=== PATIENT | female | born 1995 | race Caucasian/White ===

== ENCOUNTER 2017-02-19 23:02 | Inpatient (IN) | payer BC, MEDICARE ==
[~2017-02-19] VITALS: Ht 160 cm; Wt 50.5 kg
[2017-02-19 23:48] LABS: BASOPHILS # (AUTO) 0.02 K/uL (0.00-0.20); BASOPHILS % (AUTO) 0.2 % (0.0-2.0); EOSINOPHILS # (AUTO) 0.08 K/uL (0.00-0.70); EOSINOPHILS % (AUTO) 0.63 % (1.0-6.0); HEMATOCRIT 34.3 % (36-46); HEMOGLOBIN 11.4 g/dL (12.0-16.0); LYMPHOCYTES # (AUTO) 2.7 K/uL (1.0-4.8); LYMPHOCYTES % (AUTO) 21.6 % (22.0-44.0); MEAN CORPUSCULAR HEMOGLOBIN 28.8 pg (26.0-34.0); MEAN CORPUSCULAR HGB CONC 33.2 G/dL (31.0-37.0); MEAN CORPUSCULAR VOLUME 87 fL (80-100); MONOCYTES # (AUTO) 0.8 K/uL (0.1-1.0); NEUTROPHILS # (AUTO) 8.9 K/uL (1.8-7.7); NEUTROPHILS % (AUTO) 71.6 % (40.0-70.0); PLATELET COUNT (AUTO) 245 K/uL (150-450); RED BLOOD CELL COUNT(AUTO) 3.96 MIL/uL (4.00-5.20); RED CELL DISTRIBUTION WIDTH 14.4 % (11.5-14.5)
[2017-02-19 23:51] LABS: HCG,QUAL RESULT NEGATIVE (NEGATIVE)
[2017-02-19 23:52] LABS: APPEARANCE,URINE CLOUDY (CLEAR); GLUCOSE, URINE (UA) NEGATIVE (NEGATIVE); KETONES,URINE 40 mg/dL (NEGATIVE); LEUKOCYTE ESTERASE ,URINE SMALL (NEGATIVE); NITRATE,URINE NEGATIVE (NEGATIVE); OCCULT BLOOD,URINE SMALL (NEGATIVE); PH,URINE 5.5 (5.0-8.0); PROTEIN,URINE POS 1+ (NEGATIVE); UROBILINOGEN,URINE 0.2 mg/dL (<=1.0)
[2017-02-19 23:53] LABS: AMPHET/METH SCREEN,URINE NEGATIVE (NEGATIVE); BARBITURATE SCREEN, URINE NEGATIVE (NEGATIVE); BENZODIAZEPINES SCREEN,URINE NEGATIVE (NEGATIVE); CANNABINOID SCREEN,URINE POSITIVE (NEGATIVE); COCAINE SCREEN,URINE NEGATIVE (NEGATIVE); METHADONE SCREEN, URINE NEGATIVE (NEGATIVE); OPIATE SCREEN,URINE NEGATIVE (NEGATIVE)
[2017-02-19 23:54] LABS: PHENCYCLIDINE SCREEN,URINE NEGATIVE (NEGATIVE)
[2017-02-19 23:55] LABS: BILIRUBIN,URINE PRELIM. POSITIVE (NEGATIVE)
[2017-02-20 00:01] LABS: ANION GAP 9 mmol/L (8-16); CALCIUM, TOTAL 9.1 mg/dL (8.8-10.5); CARBON DIOXIDE 24 mmol/L (22-29); CHLORIDE 103 mmol/L (98-107); CREATININE 0.75 mg/dL (0.60-1.30); GLOMERULAR FILTR. RATE CALC > 60 mL/min (>60); GLUCOSE,RANDOM 89 mg/dL (70-110); POTASSIUM 3.9 mmol/L (3.5-5.1); SODIUM SERUM 136 mmol/L (136-145); UREA NITROGEN, BLOOD 13 mg/dL (7-18)
[2017-02-20 00:04] LABS: MUCUS,URINE Moderate LPF (None Seen); SQUAMOUS EPITHELIAL CELL,UR Many /LPF (None Seen)
[2017-02-20 00:05] LABS: BACTERIA,URINE Moderate /HPF (None Seen)
[2017-02-20 00:08] LABS: ALANINE AMINOTRANSFERASE 20 U/L (12-78); ALBUMIN 4.3 g/dL (3.4-5.0); ALKALINE PHOSPHATASE 31 U/L (46-116); ASPARTATE AMINOTRANSFERASE 17 U/L (15-37); BILIRUBIN,TOTAL 0.5 mg/dL (0.1-1.0); TOTAL PROTEIN, SERUM 7.6 g/dL (6.4-8.2)
[2017-02-20] MEDS ORDERED: ZOLPIDEM TARTRATE 10 MG TABLET PO PRN (00:45)
[2017-02-20] MEDS ORDERED: LORazepam 1 MG TABLET PO PRN (00:45)
[2017-02-20] MEDS ORDERED: HALOPERIDOL 5 MG TABLET PO PRN (00:45)
[2017-02-20] MEDS ORDERED: LORazepam 2 MG TABLET PO ONE (01:00)
[2017-02-20 02:45] VITALS: BP 117/72
[2017-02-20] MEDS ORDERED: INFLUENZA VIRUS VACCINE QVS 2017-18 (3YR+)/PF 60 MCG/0.5 ML SYRINGE IM ONE (03:15)
[2017-02-20 08:30] VITALS: BP 108/63
[2017-02-20] MEDS ORDERED: FLUoxetine HCL 20 MG CAPSULE PO SCH (09:00)
[2017-02-20] MEDS ORDERED: HydrOXYzine PAMOATE 25 MG CAPSULE PO PRN (11:00)
[2017-02-20] MEDS: ARIPiprazole 5 MG TABLET PO SCH (11:55)
[2017-02-20 16:08] VITALS: BP 103/62
[2017-02-20] MEDS: LEVOFLOXACIN 500 MG TABLET PO SCH (16:33)
[2017-02-21 06:42] VITALS: BP 116/66
[2017-02-21 08:16] VITALS: BP 117/58
[2017-02-21] MEDS: LEVOFLOXACIN 500 MG TABLET PO SCH (08:28)
[2017-02-21] MEDS: FLUoxetine HCL 20 MG CAPSULE PO SCH (08:29)
[2017-02-21] MEDS: ARIPiprazole 5 MG TABLET PO SCH (08:29)
[2017-02-21 09:23] LABS: CHOL/HDL RATIO 2.5 (3.9-5.7); CHOLESTEROL 175 mg/dL (131-200); HCG,QUANTITATIVE < 1 mIU/mL (0-6); HDL CHOLESTEROL 71 mg/dL (40-60); LDL CHOL (CALC.) 85 mg/dL (0-130); TRIGLYCERIDES 94 mg/dL (15-150)
[2017-02-21 16:11] VITALS: BP 115/63
[2017-02-22 06:12] VITALS: BP 110/82
[2017-02-22] MEDS ORDERED: FLUO40CA7 PO (08:03)
[2017-02-22] MEDS ORDERED: LEVO500T2 PO (08:03)
[2017-02-22] MEDS ORDERED: ARIP5TAB8 PO (08:03)
[2017-02-22 08:09] VITALS: BP 114/83
[2017-02-22] MEDS: LEVOFLOXACIN 500 MG TABLET PO SCH (08:31)
[2017-02-22] MEDS: FLUoxetine HCL 20 MG CAPSULE PO SCH (08:31)
[2017-02-22] MEDS: ARIPiprazole 5 MG TABLET PO SCH (08:32)
== END 2017-02-22 13:00 | disposition home or self-care (01) | DRG 885 ==
LOC: EMS 23:04 → B2X 02-20 01:43
PROVIDERS: ADMIT Psychiatry & Neurology Psychiatry; ATTEND Psychiatry & Neurology Psychiatry
PROC: 3E0234Z Introduction of Serum, Toxoid and Vaccine into Muscle, Percutaneous Approach (ICD-10-PCS; principal; 2017-02-20)
DX: F33.2 Major depressive disorder, recurrent severe without psychotic features (principal); D64.9 Anemia, unspecified; F12.10 Cannabis abuse, uncomplicated; F14.90 Cocaine use, unspecified, uncomplicated; S60.819A Abrasion of unspecified wrist, initial encounter; N39.0 Urinary tract infection, site not specified; Z23 Encounter for immunization; F43.22 Adjustment disorder with anxiety; X58.XXXA Exposure to other specified factors, initial encounter; Y93.89 Activity, other specified; Y92.89 Other specified places as the place of occurrence of the external cause; Y99.8 Other external cause status; S61.512A Laceration without foreign body of left wrist, initial encounter; X78.9XXA Intentional self-harm by unspecified sharp object, initial encounter; Z59.0 Homelessness; Z83.3 Family history of diabetes mellitus; F60.3 Borderline personality disorder; Z63.9 Problem related to primary support group, unspecified; F19.10 Other psychoactive substance abuse, uncomplicated
CPT/HCPCS: 87086; 90471; 99285; G0480